=== PATIENT | male | born 1965 | race Caucasian/White ===

== ENCOUNTER 2024-11-16 07:36 | Outpatient (CLI) | payer OTHER, SELFPAY ==
[2024-11-16 14:28] LABS: ALT 49 U/L (16-63); AST 27 U/L (15-37); Albumin 4.1 g/dL (3.4-5.0); Alkaline Phosphatase 74 U/L (46-116); Anion Gap 9.7 mmol/L (3-11); BUN 27 mg/dL (7-18); Bilirubin, Total 0.7 mg/dL (0.2-1.0); CO2 27.3 mmol/L (21.0-32.0); Calcium 9.4 mg/dL (8.5-10.1); Chloride 104 mmol/L (98-107); Estimated GFR 69.66 (mL/min/1.73m2); Glucose 108 mg/dL (74-106); Potassium 4.0 mmol/L (3.5-5.1); Sodium 141 mmol/L (136-145); Total Protein 7.6 g/dL (6.4-8.2)
[2024-11-17 15:25] LABS: Calculated LDL 149 mg/dL (<100); Cholesterol 220 mg/dL (<200); HDL Cholesterol 57 mg/dL (>or=40); Triglyceride 70 mg/dL (<150)
== END 2024-11-16 07:37 | disposition home or self-care (01) ==
LOC: LOS 07:36
PROVIDERS: PCP Family Medicine; Visit Provider Family Medicine
DX: I10 Essential (primary) hypertension (principal)
CPT/HCPCS: 36415; 80053; 80061